=== PATIENT | female | born 1995 | race Caucasian/White ===

== ENCOUNTER → 2017-05-08 | Outpatient (CLI) | payer OTHER ==
--- NOTE | ~2017-05-08 | 2DMMODE ---
[facility] [address] [place] [address] 2 D/M-MODE ECHOCARDIOGRAM Name: ISSA DUBOIS Room #: REG [facility]#: [id number] Admission: 05/08/17 Attend Phys: Boo Lopez Discharge: Date of : 89 Date of Service: 05/08/17 1717 Report #: [id number] THIS REPORT FOR: //name// APPROVED REPORT Study performed: 05/08/2017 13:22:10 EXAM: Comprehensive 2D, Doppler, and color-flow Echocardiogram Patient Location: Out-Patient Status: routine BSA: 1.65 HR: 78 bpm BP: 124/74 mmHg Rhythm: NSR Other Information Study Quality: Good Indications Palpitations Tachycardia 2D Dimensions RVDd: 36.45 mm LVEF(%): 58.74 (>50%) IVSd: 8.47 (7-11mm) LVOT Diam: 20.35 (18-24mm) LVDd: 45.35 mm PWd: 8.01 (7-11mm) Ascending Ao: 24.70 (22-36mm) LVDs: 31.31 (25-40mm) Aortic Root: 23.13 mm Cintron's LVEF: 58.74 % Volumes Left Atrial Volume (Systole) Single Plane 4CH: 37.94 mL Single Plane 2CH: 29.58 mL LA ESV Index: 22.00 mL/m2 Aortic Valve AoV Peak Rell.: 1.32 m/s AO Peak Gr.: 6.95 mmHg LVOT Max P.92 mmHg LVOT Max V: 1.11 m/s AAKASH Vmax: 2.74 cm2 Mitral Valve E/A Ratio: 1.[address] [facility] [address] [place] [address] 2 D/M-MODE ECHOCARDIOGRAM Name: ISSA DUBOIS Room #: REG [facility]#: [id number] Admission: 05/08/17 Attend Phys: Boo Lopez Discharge: Date of : 89 Date of Service: 05/08/17 1717 Report #: [id number] MV Decel. Time: 207.63 ms MV E Max Rell.: 0.93 m/s MV A Rell.: 0.79 m/s MV PHT: 60.21 ms IVRT: 59.98 ms Pulmonary Valve PV Peak Rell.: 1.09 m/s PV Peak Gr.: 4.71 mmHg Pulmonary Vein P Vein S: 0.99 m/s P Vein A: 0.29 m/s P Vein D: 0.64 m/s P Vein A Dur.: 101.5 msec P Vein S/D Ratio: 1.55 Tricuspid Valve TR Peak Rell.: 2.07 m/s RAP Estimate: 5.00 mmHg TR Peak Gr.: 17.12 mmHg PA Pressure: 22.00 mmHg Left Ventricle The left ventricle is normal size. There is normal left ventricular wall thickness. The left ventricular systolic function is normal. LVEF is 55-60%. The left ventricular diastolic function is normal. Right Ventricle The right ventricle is normal size. The right ventricular systolic function is normal. Atria The left atrium size is normal. The right atrium size is normal. Aortic Valve The aortic valve is normal in structure. No aortic regurgitation is present. There is no aortic valvular stenosis. Mitral Valve The mitral valve is normal in structure. There is no mitral valve regurgitation noted. No evidence of mitral valve stenosis. Tricuspid Valve The tricuspid valve is normal in structure. Trace tricuspid regurgitation. Pulmonic Valve [facility] [address] [place] [address] 2 D/M-MODE ECHOCARDIOGRAM Name: ISSA DUBOIS Room #: REG [facility].#: [id number] Admission: 05/08/17 Attend Phys: [facility] Dis[facility]: Date of : 89 Date of Service: 05/08/17 1717 Report #: [id number] The pulmonary valve is normal in structure. Trace to mild pulmonic regurgitation. Great Vessels The aortic root is normal in size. The ascending aorta is normal in size. IVC is normal in size and collapses >50% with inspiration. Pericardium There is no pericardial effusion. There is no pleural effusion. <Conclusion> The left ventricle is normal size. The left ventricular systolic function is normal. LVEF is 55-60%. The left ventricular diastolic function is normal. The right ventricle is normal size. The left atrium size is normal. The aortic valve is normal in structure. There is no mitral valve regurgitation noted. Trace tricuspid regurgitation. There is no pericardial effusion. <ELECTRONICALLY SIGNED> By: Mike Powell MD, FACC 05/08/171716 16 16 Mike Powell MD, FACC /INF
== END ==
LOC: CV 13:34
DX: R00.0 Tachycardia, unspecified (principal); R00.2 Palpitations